=== PATIENT | female | born 1965 | race Two or more races ===

== ENCOUNTER → 2016-04-30 | Outpatient (CLI) | payer OTHER ==
[2015-07-29 04:34] VITALS: BP 125/78
--- NOTE | 2016-05-02 09:21 | RAD ---
DATE: 04/30/2016 EXAM: DIGITAL SCREEN BILAT W/CAD HISTORY: Routine screening COMPARISON: 04/20/2015 This study was interpreted with the benefit of Computerized Aided Detection (CAD). FINDINGS: The fibroglandular pattern is heterogeneously dense, primarily in the upper outer quadrants. On the oblique view of the left breast there is a small asymmetric opacity projected over the posterior inferior aspect of the breast . This was not evident on the previous study, however, less of the posterior aspect of the breast was included on that exam. A definite correlate is not currently seen on the cc view. No other new or suspicious breast densities are seen. Benign type calcifications are present in both breasts. IMPRESSION: Small asymmetric density in the left breast seen on only one view as described above. Diagnostic mammography is suggested for further evaluation. If any older mammograms are available, correlation with those studies may also be helpful. BI-RADS CATEGORY: 0 INCOMPLETE: NEEDS ADDITIONAL IMAGING EVALUATION AND/OR PRIOR MAMMOGRAMS FOR COMPARISON. RECOMMENDED FOLLOW-UP: ADD ADDITIONAL IMAGING PQRS compliance statement: Patient information was entered into a reminder system with a target due date for the next mammogram. Mammography is a sensitive method for finding small breast cancers, but it does not detect them all and is not a substitute for careful clinical examination. A negative mammogram does not negate a clinically suspicious finding and should not result in delay in biopsying a clinically suspicious abnormality. "Our facility is accredited by the [employer] M[employer]."
== END | disposition home or self-care (01) ==
LOC: MAMMO 08:42
PROVIDERS: ATTEND Family Medicine
DX: Z12.31 Encounter for screening mammogram for malignant neoplasm of breast (principal)
CPT/HCPCS: G0202; 77067

== ENCOUNTER → 2016-05-06 | Outpatient (CLI) | payer OTHER ==
[2015-07-29 04:34] VITALS: BP 125/78
--- NOTE | 2016-05-06 14:26 | RAD ---
DATE: 05/06/16 EXAM: Digital diagnostic left mammogram and left breast ultrasound. HISTORY: Follow-up nodularity seen on the screening mammogram COMPARISON: Screening bilateral mammogram from 04/30/16 This study was interpreted with the benefit of Computerized Aided Detection (CAD). Diagnostic left mammogram: Technique: 90 degrees mediolateral and CC and MLO spot compression views of the left breast are obtained. Findings: Asymmetric density seen in the left breast on prior screening mammogram somewhat persists on additional views. No well-defined nodule is identified. Ultrasound to follow. Left breast ultrasound discussion: Targeted sonographic evaluation of the left breast is performed in the area of concern and images are obtained.Dense fibroglandular tissues are identified. No solid or cystic mass lesions are seen. IMPRESSION: 1. Asymmetric density seen on the screening mammogram somewhat persists. 2. No definite sonographic abnormality seen. 3. 6 months follow-up left breast mammogram and ultrasound may be obtained to ensure interval stability BI-RADS CATEGORY: 3 PROBABLE BENIGN-SHORT TERM F/U RECOMMENDED FOLLOW-UP: 6M 6 MONTH FOLLOW-UP PQRS compliance statement: Patient information was entered into a reminder system with a target due date for the next mammogram. Mammography is a sensitive method for finding small breast cancers, but it does not detect them all and is not a substitute for careful clinical examination. A negative mammogram does not negate a clinically suspicious finding and should not result in delay in biopsying a clinically suspicious abnormality. "Our facility is accredited by the [employer]amm[employer]."
== END | disposition home or self-care (01) ==
LOC: MAMMO 12:27
PROVIDERS: ATTEND Family Medicine
DX: R92.8 Other abnormal and inconclusive findings on diagnostic imaging of breast (principal); N63 Unspecified lump in breast
CPT/HCPCS: 76641; G0206; 77065